=== PATIENT | female | born 1945 | race Caucasian/White ===

== ENCOUNTER → 2019-05-06 | Day surgery (SDC) | payer MEDICARE ==
[~2019-05-06] VITALS: Ht 154.9 cm; Wt 81.6 kg
[~2019-05-06] MED LIST: 'TENORMIN50 MG PO; ALTACE10 MG PO; AMARYL1 MG PO; AMLODIPINE BESYL5 MG PO; ANASTROZOLE1 M1 PO; ASPIRIN81 M1 PO; BIOTIN1 M1 PO; CARTIA XT180 MG PO; IMDUR SA60 MG PO; IRON18 MG PO; LEXAPRO10 MG PO; LIPITOR10 MG PO; LOSARTAN POTASS25 M1 PO; METFORMIN850 MG PO; METOPROLOL TART75 MG PO; NOVOLOG FL100 UNIT/2 SC; NOVOLOG FL100 UNIT/2 SQ; OCUFLOX 0.3% 5 M5 ML OD; ONE-DAILY MULT1 EAC1 PO; PANTOPRAZOLE SO40 MG PO; PHARMASSURE FO0.4 MG PO; PRED FORTE5 ML OD; PROBIOTIC1 EAC1 PO; SYNTHROID,LEVO88 MCG PO; TRESIBA FL100 UNIT/1 SQ; ZOCOR10 MG PO
[2019-05-06 08:25] VITALS: BP 150/56
[2019-05-06 10:28] VITALS: BP 130/67
[2019-05-06 10:43] VITALS: BP 127/67
[2019-05-06 10:58] VITALS: BP 135/59
== END | disposition home or self-care (01) ==
LOC: SDC 05-01 11:00
DX: H25.811 Combined forms of age-related cataract, right eye (principal); E11.36 Type 2 diabetes mellitus with diabetic cataract; I10 Essential (primary) hypertension; F41.9 Anxiety disorder, unspecified

== ENCOUNTER → 2021-05-19 | Outpatient (CLI) | payer MEDICARE | END | disposition home or self-care (01) | LOC: RESCLI 13:25 | PROVIDERS: ATTEND Internal Medicine | DX: I10 Essential (primary) hypertension (principal); I48.0 Paroxysmal atrial fibrillation; F41.9 Anxiety disorder, unspecified; E03.9 Hypothyroidism, unspecified; K21.9 Gastro-esophageal reflux disease without esophagitis; I25.10 Atherosclerotic heart disease of native coronary artery without angina pectoris; E11.9 Type 2 diabetes mellitus without complications; E78.5 Hyperlipidemia, unspecified; C50.919 Malignant neoplasm of unspecified site of unspecified female breast; Z88.8 Allergy status to other drugs, medicaments and biological substances; Z79.899 Other long term (current) drug therapy; Z79.82 Long term (current) use of aspirin; Z90.49 Acquired absence of other specified parts of digestive tract; Z98.890 Other specified postprocedural states ==

== ENCOUNTER → 2022-05-11 | Outpatient (CLI) | payer MEDICARE ==
[~2022-05-11] MED LIST changes: +ELIQUIS2.5 M1 PO; +LANTUS SOL100 UNIT/1 SC
== END | disposition home or self-care (01) ==
LOC: RESCLI 00:21
PROVIDERS: ATTEND Internal Medicine
DX: E11.9 Type 2 diabetes mellitus without complications (principal); I48.0 Paroxysmal atrial fibrillation; E03.9 Hypothyroidism, unspecified; E78.5 Hyperlipidemia, unspecified; I10 Essential (primary) hypertension; K21.9 Gastro-esophageal reflux disease without esophagitis; Z91.048 Other nonmedicinal substance allergy status; C50.919 Malignant neoplasm of unspecified site of unspecified female breast; Z82.49 Family history of ischemic heart disease and other diseases of the circulatory system; Z90.710 Acquired absence of both cervix and uterus; Z98.890 Other specified postprocedural states; Z79.01 Long term (current) use of anticoagulants; Z79.82 Long term (current) use of aspirin; Z79.899 Other long term (current) drug therapy

== ENCOUNTER → 2023-05-17 | Outpatient (CLI) | payer MEDICARE | END | disposition home or self-care (01) | LOC: RESCLI 01:52 | PROVIDERS: ATTEND Internal Medicine | DX: E11.9 Type 2 diabetes mellitus without complications (principal); I10 Essential (primary) hypertension; E78.5 Hyperlipidemia, unspecified; C50.919 Malignant neoplasm of unspecified site of unspecified female breast; E03.9 Hypothyroidism, unspecified; K21.9 Gastro-esophageal reflux disease without esophagitis; I48.0 Paroxysmal atrial fibrillation; I25.10 Atherosclerotic heart disease of native coronary artery without angina pectoris; Z79.899 Other long term (current) drug therapy; Z88.8 Allergy status to other drugs, medicaments and biological substances; Z98.890 Other specified postprocedural states ==

== ENCOUNTER → 2024-04-27 | Outpatient (CLI) | payer MEDICARE | END | disposition home or self-care (01) | LOC: RESCLI 01:31 | PROVIDERS: ATTEND Internal Medicine | DX: I25.10 Atherosclerotic heart disease of native coronary artery without angina pectoris (principal); I10 Essential (primary) hypertension; I48.0 Paroxysmal atrial fibrillation; E11.9 Type 2 diabetes mellitus without complications; F41.9 Anxiety disorder, unspecified; E03.9 Hypothyroidism, unspecified; K21.9 Gastro-esophageal reflux disease without esophagitis; E78.5 Hyperlipidemia, unspecified; Z79.899 Other long term (current) drug therapy; Z98.890 Other specified postprocedural states ==